=== PATIENT | male | born 1970 | race Caucasian/White ===

== ENCOUNTER 2024-11-02 07:39 | Emergency (ER) | payer OTHER ==
[~2024-11-02] VITALS: Ht 180.3 cm; Wt 68.0 kg
[2024-11-02] MEDS ORDERED: Acetaminophen 500 MG Tab PO ONE (08:55)
[2024-11-02] MEDS ORDERED: NS 1,000 ML IV SCH (08:55)
[2024-11-02] MEDS ORDERED: Lidocaine 4% 1 Patch TOP ONE (08:55)
[2024-11-02] MEDS ORDERED: Cyclobenzaprine HCl 10 MG Tab PO ONE (08:55)
[2024-11-02] MEDS ORDERED: Ketorolac Tromethamine 15mg Vial IV ONE (08:55)
[2024-11-02] MEDS ORDERED: CYCL10 PO (10:01)
[2024-11-02] MEDS ORDERED: LIDO700A20 TOP (10:01)
[2024-11-02] MEDS ORDERED: Voltaren100 GM TOP (10:02)
== END 2024-11-02 10:49 | disposition home or self-care (01) ==
LOC: ER 07:39
DX: M54.41 Lumbago with sciatica, right side (principal); G89.29 Other chronic pain; F17.200 Nicotine dependence, unspecified, uncomplicated
CPT/HCPCS: 96374; 99283-25; A9270; J1885; J7030